=== PATIENT | female | born 1995 | race African-American/Black ===

== ENCOUNTER 2020-04-05 06:22 | Inpatient (IN) ==
[2020-04-05] MEDS ORDERED: PITOCIN ONE (06:35)
[2020-04-05] MEDS ORDERED: BETADINE SOLN ONE (06:36)
[2020-04-05] MEDS ORDERED: D5 1/2 NS 1000 ML 1,000 ML IV ONE (06:36)
[2020-04-05] MEDS ORDERED: D5LR 1L W PITOCIN 10 UNITS/L 10 UNITS/1,000 ML BAG IV ONE (06:36)
[2020-04-05] MEDS: D5 1/2 NS 1000 ML 1,000 ML IV SCH ×2 (06:40→17:00)
[2020-04-05] MEDS ORDERED: PITOCIN IVP ONE (07:08)
[2020-04-05] MEDS ORDERED: REGLAN INJ 10 MG VIAL IVP PRN (07:08)
[2020-04-05] MEDS ORDERED: MORPHINE SULFATE INJ 2 MG INJ IVP PRN (07:08)
[2020-04-05] MEDS ORDERED: PHENERGAN INJ 25 MG IM PRN ×2 (07:08→17:09)
[2020-04-05] MEDS ORDERED: D5LR 1L W PITOCIN 10 UNITS/L 10 UNITS/1,000 ML BAG IV PRN (07:30)
[2020-04-05 07:39] LABS: BILIRUBIN,URINE NEGATIVE (NEGATIVE); BLOOD/HEMOGLOBIN,URINE 2+ (NEGATIVE); GLUCOSE, URINE NEGATIVE (NEGATIVE); KETONES,URINE NEGATIVE (NEGATIVE); LEUKOCYTE ESTERASE ,URINE 3+ (NEGATIVE); NITRITES,URINE NEGATIVE (NEGATIVE); PROTEIN,URINE 2+ (NEGATIVE); UROBILINOGEN,URINE NORMAL (NORMAL)
[2020-04-05 07:41] LABS: BASOPHILS % (AUTO) 0.2 % (0.2-1.0); EOSINOPHILS # (AUTO) 0.1 x10^3/uL (0.0-0.2); EOSINOPHILS % (AUTO) 1.2 % (0.9-2.9); HEMOGLOBIN 8.2 g/dL (12.0-16.0); LYMPHOCYTES # (AUTO) 1.6 X10^3/uL (1.3-2.9); LYMPHOCYTES % (AUTO) 34.7 % (21.0-51.0); MEAN CORPUSCULAR HGB CONC 32.7 g/dL (33.0-35.0); MEAN CORPUSCULAR VOLUME 76.3 fL (80.0-100.0); MEAN PLATELET VOLUME 8.2 fL (7.4-11.0); MONOCYTES # (AUTO) 0.3 x10^3/uL (0.3-0.8); MONOCYTES % (AUTO) 6.9 % (0.0-13.0); NEUTROPHILS # (AUTO) 2.6 x10^3/uL (2.2-4.8); PLATELET COUNT 202 X10^3/uL (150.0-450.0); RED BLOOD COUNT 3.27 X10^6/uL (3.5-5.4); RED CELL DISTRIBUTION WIDTH 15.2 % (11.6-16.5); WHITE BLOOD COUNT 4.6 X10^3/uL (3.6-10.0)
[2020-04-05 07:44] LABS: APPEARANCE,URINE HAZY (CLEAR); COLOR,URINE YELLOW (YELLOW)
[2020-04-05 07:44] LABS: BLOOD UREA NITROGEN 7 mg/dL (7-18); CALCIUM 8.9 mg/dL (8.5-10.1); CARBON DIOXIDE 23.6 mmol/L (21-32); CHLORIDE 105 mmol/L (98-107); CREATININE 0.67 mg/dL (0.55-1.02); SODIUM 138 mmol/L (136-145); eGFR NON BLACK RACES > 60 (>60)
[2020-04-05 07:52] LABS: BACTERIA,URINE NEGATIVE /HPF (NEGATIVE); MUCUS,URINE FEW /HPF (NEGATIVE); RBC,URINE 0-2 /HPF (0-3); SQUAMOUS EPITHELIAL CELL,UR MANY /HPF (NEGATIVE)
[2020-04-05 08:01] LABS: PLATELET MORPHOLOGY COMMENT NORMAL (NORMAL)
[2020-04-05] MEDS: STADOL INJ IVP PRN ×2 (09:00→12:04)
[2020-04-05] MEDS ORDERED: STADOL INJ ONE ×2 (09:06→11:50)
[2020-04-05] MEDS ORDERED: LR 1000 ML IV 1,000 ML IV ONE (12:44)
[2020-04-05] MEDS ORDERED: FENTANYL INJ 100 mcg ONE (12:44)
[2020-04-05] MEDS ORDERED: FENTANYL 2 mcg/mL-ROPIV 0.1%-NS EPIDURAL 200 ML EPI ONE (12:46)
[2020-04-05] MEDS: D5 1/2 NS 1L W PITOCIN 20 UNITS/L 20 UNITS/1,000 ML BAG IV ONE ×2 (16:30→17:12)
[2020-04-05] MEDS ORDERED: MOTRIN TAB 800 MG PO PRN ×2 (17:09→17:20)
[2020-04-05] MEDS ORDERED: DERMOPLAST PAIN RELIEF SPRAY TOP PRN (17:20)
[2020-04-05] MEDS ORDERED: AMBIEN PO PRN (17:20)
[2020-04-05] MEDS ORDERED: MILK OF MAGNESIA PO PRN (17:20)
[2020-04-05] MEDS ORDERED: ADACEL or BOOSTRIX TDaP VACCINE IM ONE (17:20)
[2020-04-05] MEDS ORDERED: D5 1/2 NS 1000 ML 1,000 ML with PITOCIN 20 UNITS IV SCH ×2 (18:00)
[2020-04-05] MEDS ORDERED: TORADOL 30 MG VIAL IVP ONE (18:56)
[2020-04-05] MEDS: MOTRIN TAB 800 MG PO PRN (22:25)
[2020-04-06 06:14] LABS: HEMATOCRIT 22.3 % (36.0-47.0); HEMOGLOBIN 7.3 g/dL (12.0-16.0)
[2020-04-06] MEDS: MOTRIN TAB 800 MG PO PRN ×2 (07:58→19:27)
[2020-04-06] MEDS ORDERED: NS 100 ML IV 100 ML with VENOFER 400 MG IV NR ×2 (08:35)
[2020-04-06] MEDS ORDERED: PRENATAL PLUS PO SCH (09:00)
[2020-04-07 08:50] VITALS: BP 110/57
[2020-04-07] MEDS ORDERED: NS 100 ML IV 100 ML with VENOFER 400 MG IV NR ×2 (09:00)
[2020-04-07] MEDS: MOTRIN TAB 800 MG PO PRN (09:11)
[2020-04-07] MEDS ORDERED: KLOR-CON PO PRN (10:19)
[2020-04-07] MEDS ORDERED: POTASSIUM CHL 40 MEQ/NS 0.45% 500 ML IV PRN (10:19)
[2020-04-07] MEDS ORDERED: MICRO K EXTEN CAP 10 MEQ PO PRN (10:19)
[2020-04-07] MEDS ORDERED: K-DUR TAB 20 MEQ PO PRN (10:19)
[2020-04-07] MEDS ORDERED: K-RIDER 10 MEQ/NS 100 ML 10 MEQ/100 ML BAG IV PRN (10:19)
[2020-04-07] MEDS ORDERED: POTASSIUM CHL 60 MEQ/NS 0.45% 500 ML IV PRN (10:19)
[2020-04-07] MEDS ORDERED: POTASSIUM CHLORIDE LIQ 20 MEQ UDC PO PRN (10:19)
== END 2020-04-07 11:30 | disposition home or self-care (01) | DRG 806 ==
LOC: LD 06:22 → MED/SURG 17:31
PROVIDERS: ADMIT Obstetrics & Gynecology Obstetrics; ATTEND Obstetrics & Gynecology Obstetrics
DX: D50.8 Other iron deficiency anemias; O99.013 Anemia complicating pregnancy, third trimester; O98.813 Other maternal infectious and parasitic diseases complicating pregnancy, third trimester; A74.9 Chlamydial infection, unspecified; Z3A.38 38 weeks gestation of pregnancy; Z37.0 Single live birth